=== PATIENT | female | born 1950 | race African-American/Black ===

== ENCOUNTER 2021-03-02 19:01 | Inpatient (IN) | payer OTHER, MEDICAID ==
[~2021-03-02] VITALS: Ht 157.5 cm; Wt 74.7 kg
[2021-03-02] MEDS ORDERED: ACETAMINOPHEN 325 MG TAB PO ONE (19:30)
[2021-03-02 20:07] LABS: Basophils # (auto) 0 10 ^3/uL (0-0.2); Basophils % (auto) 0.1 % (0.0-2.0); Eosinophils # (auto) 0 10 ^3/uL (0-0.8); Hematocrit 44.2 % (36.0-46.0); Hemoglobin 14.8 g/dL (12.2-16.2); Lymphocytes # (auto) 0.3 10 ^3/uL (0.4-5.4); Lymphocytes % (auto) 3.8 % (10.0-50.0); Mean Corpuscular Hemoglobin 30.2 pg (28.0-32.0); Mean Corpuscular Hgb Conc. 33.6 g/dL (32.0-36.0); Monocytes # (auto) 0.5 10 ^3/uL (0-1.3); Neutrophils # (auto) 6.6 10 ^3/uL (1.6-8.6); Neutrophils % (auto) 89.1 % (37.0-80.0); Nucleated Red Blood Cells % 0.2 %; Platelet Count (auto) 257 10^3/uL (140-450); Red Blood Cells 4.91 10^6/uL (4.0-5.20); Red Cell Distribution Width 13.9 % (11.8-14.3); White Blood Cell 7.5 10^3/uL (4.4-10.8)
[2021-03-02 20:25] LABS: Albumin 2.6 g/dL (3.4-5.0); Anion Gap 10 (5-15); Blood Urea Nitrogen 7 mg/dL (7-18); Calcium 7.8 mg/dL (8.5-10.1); Carbon Dioxide 24 mmol/L (21-32); Chloride 94 mmol/L (98-107); Glucose 100 mg/dL (74-106); Potassium 3.9 mmol/L (3.5-5.1); Sodium 128 mmol/L (136-145)
[2021-03-02 20:30] LABS: Alanine Aminotransferase 21 U/L (13-56); Alkaline Phosphatase 74 U/L (45-117); Aspartate Aminotransferase 39 U/L (15-37); BUN/Creatinine Ratio 8.5; Bilirubin, Total 0.5 mg/dL (0.2-1.0); GFR African American 88 mL/min; GFR Non-African American 73 mL/min; Total Protein 7.1 g/dL (6.4-8.2)
[2021-03-02] MEDS ORDERED: SODIUM CHLORIDE 0.9% 500 ML IV ONE (22:30)
[2021-03-03] VITALS (9 sets, daily range): BP systolic 89–119; BP diastolic 57–93
[2021-03-03] MEDS ORDERED: SODIUM CHLORIDE 0.9% 500 ML IV ONE (00:30)
[2021-03-03 01:25] LABS: Urine Bacteria NONE SEEN /hpf (None Seen); Urine Blood Negative /uL (Negative); Urine Specific Gravity 1.009 (1.001-1.035); Urine WBC 2 /hpf (0 - 5)
[2021-03-03] MEDS ORDERED: TEMAZEPAM 15 MG CAP PO PRN (02:30)
[2021-03-03] MEDS ORDERED: MORPHINE SULF INJ 2 MG/ML SYRINGE 1ML IV PRN (02:30)
[2021-03-03] MEDS ORDERED: REMDESIVIR PER PHARMACY 0 ML IV SCH (02:30)
[2021-03-03] MEDS ORDERED: SODIUM CHLORIDE 0.9% 1,000 ML IV SCH (02:30)
[2021-03-03] MEDS ORDERED: ACETAMINOPHEN 500 MG TAB PO PRN (02:30)
[2021-03-03] MEDS ORDERED: NITROGLYCERIN 0.4 MG SL TAB SL PRN (02:30)
[2021-03-03] MEDS ORDERED: ACETAMINOPHEN 325 MG TAB PO PRN (02:30)
[2021-03-03 03:30] LABS: Magnesium 2.2 mg/dL (1.6-2.6)
[2021-03-03] MEDS: AZITHROMYCIN 500MG/ 250ML 250 ML IV SCH (03:31)
[2021-03-03] MEDS: DexAMETHasone SOD PHOS 10MG/1ML VIAL INJ IV SCH (03:31)
[2021-03-03] MEDS ORDERED: PNEUMOCOCCAL VACC POLYS 25 MCG/0.5 ML VIAL IM SCH (05:30)
[2021-03-03] MEDS ORDERED: ALBUAER3 IN (05:36)
[2021-03-03] MEDS: CHOLECALCIFEROL (VITD3) 2,000 UNIT CAP/TAB PO SCH (09:55)
[2021-03-03] MEDS: FAMOTIDINE 20 MG TAB PO SCH ×2 (09:55→21:37)
[2021-03-03] MEDS: ASCORBIC ACID 1,000 MG TAB PO SCH (09:55)
[2021-03-03] MEDS: ENOXAPARIN SOD 40 MG/0.4 ML SYRINGE SC SCH ×2 (09:56→21:38)
[2021-03-03] MEDS ORDERED: FAMOTIDINE (10MG/ML) 2ML VL IV ONE (11:45)
[2021-03-03] MEDS ORDERED: BUDESONIDE (INHALATION) 0.5 MG/2 ML NEB NEB ONE (11:45)
[2021-03-03] MEDS ORDERED: REMDESIVIR 200 MG in NS 210ml LOADING DOSE ADULT IV ONE (15:00)
[2021-03-03] MEDS: ALBUTEROL SULF HFA 90MCG INH 200DOSE IN PRN (20:42)
[2021-03-03] MEDS: BUDESONIDE (INHALATION) 0.5 MG/2 ML NEB NEB SCH (20:42)
[2021-03-03] MEDS: HYDROcodone-ACET 5/325MG TAB PO PRN (21:56)
[2021-03-04 05:00] VITALS: BP 87/49
[2021-03-04 05:42] VITALS: BP 100/62
[2021-03-04 07:48] LABS: Basophils # (auto) 0 10 ^3/uL (0-0.2); Basophils % (auto) 0.2 % (0.0-2.0); Eosinophils # (auto) 0 10 ^3/uL (0-0.8); Hemoglobin 13.4 g/dL (12.2-16.2); Lymphocytes # (auto) 0.3 10 ^3/uL (0.4-5.4); Lymphocytes % (auto) 3.7 % (10.0-50.0); Mean Corpuscular Hemoglobin 30.4 pg (28.0-32.0); Mean Corpuscular Hgb Conc. 33.5 g/dL (32.0-36.0); Mean Corpuscular Volume 90.9 fL (80.0-100.0); Monocytes # (auto) 0.5 10 ^3/uL (0-1.3); Monocytes % (auto) 5.7 % (0.0-12.0); Neutrophils # (auto) 7.3 10 ^3/uL (1.6-8.6); Neutrophils % (auto) 90.4 % (37.0-80.0); Nucleated Red Blood Cells % 0.1 %; Platelet Count (auto) 317 10^3/uL (140-450); Red Cell Distribution Width 14.2 % (11.8-14.3)
[2021-03-04 08:09] LABS: Potassium 4.2 mmol/L (3.5-5.1)
[2021-03-04 08:17] LABS: Albumin 2.2 g/dL (3.4-5.0); BUN/Creatinine Ratio 18.9; Bilirubin, Total 0.3 mg/dL (0.2-1.0); Calcium 7.8 mg/dL (8.5-10.1); Total Protein 6.1 g/dL (6.4-8.2)
[2021-03-04 08:41] VITALS: BP 94/65
[2021-03-04] MEDS: FAMOTIDINE (10MG/ML) 2ML VL IV SCH (10:20)
[2021-03-04] MEDS: DexAMETHasone SOD PHOS 10MG/1ML VIAL INJ IV SCH (10:20)
[2021-03-04] MEDS: ASCORBIC ACID 1,000 MG TAB PO SCH (10:21)
[2021-03-04] MEDS: AZITHROMYCIN 500MG/ 250ML 250 ML IV SCH (10:21)
[2021-03-04] MEDS: CHOLECALCIFEROL (VITD3) 2,000 UNIT CAP/TAB PO SCH (10:22)
[2021-03-04] MEDS: ENOXAPARIN SOD 40 MG/0.4 ML SYRINGE SC SCH ×2 (10:22→21:58)
[2021-03-04] MEDS: BUDESONIDE (INHALATION) 0.5 MG/2 ML NEB NEB SCH ×2 (10:24→19:15)
[2021-03-04 12:31] VITALS: BP 95/64
[2021-03-04] MEDS: methylPREDNISolone SOD SUCC 40 MG/ML VL IV SCH ×2 (13:50→21:57)
[2021-03-04] MEDS: REMDESIVIR 100mg 100 MG in SODIUM CHL 0.9% 230 ML IV SCH (15:29)
[2021-03-04 16:51] VITALS: BP 94/62
[2021-03-04] MEDS: Ensure HIGH Protein Chocolate 8oz Bottle PO SCH (17:34)
[2021-03-04] MEDS: ALBUTEROL SULF HFA 90MCG INH 200DOSE IN PRN (19:26)
[2021-03-04 22:00] VITALS: BP 125/75
[2021-03-05 05:14] VITALS: BP 105/60
[2021-03-05] MEDS: ALBUTEROL SULF HFA 90MCG INH 200DOSE IN PRN (08:00)
[2021-03-05] MEDS: BUDESONIDE (INHALATION) 0.5 MG/2 ML NEB NEB SCH ×2 (08:00→20:40)
[2021-03-05] MEDS: FAMOTIDINE (10MG/ML) 2ML VL IV SCH (08:26)
[2021-03-05] MEDS: ENOXAPARIN SOD 40 MG/0.4 ML SYRINGE SC SCH ×2 (08:26→22:31)
[2021-03-05] MEDS: AZITHROMYCIN 500MG/ 250ML 250 ML IV SCH (08:26)
[2021-03-05] MEDS: CHOLECALCIFEROL (VITD3) 2,000 UNIT CAP/TAB PO SCH (08:26)
[2021-03-05] MEDS: ASCORBIC ACID 1,000 MG TAB PO SCH (08:26)
[2021-03-05] MEDS: Ensure HIGH Protein Chocolate 8oz Bottle PO SCH ×2 (08:26→17:44)
[2021-03-05 09:00] VITALS: BP 102/56
[2021-03-05] MEDS ORDERED: FUROSEMIDE 20 MG TAB PO ONE (10:45)
[2021-03-05] MEDS ORDERED: POTASSIUM CHL 20 Meq TABLET PO ONE (10:45)
[2021-03-05 13:00] VITALS: BP 103/66
[2021-03-05] MEDS: REMDESIVIR 100mg 100 MG in SODIUM CHL 0.9% 230 ML IV SCH (14:34)
[2021-03-05 17:00] VITALS: BP 105/68
[2021-03-05 20:00] VITALS: BP 101/68
[2021-03-05 22:00] VITALS: BP 101/68
[2021-03-05] MEDS: methylPREDNISolone SOD SUCC 40 MG/ML VL IV SCH (22:30)
[2021-03-05] MEDS: FAMOTIDINE 20 MG TAB PO SCH (22:30)
[2021-03-06] VITALS (7 sets, daily range): BP systolic 98–108; BP diastolic 53–69
[2021-03-06] MEDS: BUDESONIDE (INHALATION) 0.5 MG/2 ML NEB NEB SCH ×2 (07:10→21:09)
[2021-03-06 07:13] LABS: Calcium 7.9 mg/dL (8.5-10.1); Potassium 4.6 mmol/L (3.5-5.1)
[2021-03-06 07:15] LABS: BUN/Creatinine Ratio 36.8
[2021-03-06 07:18] LABS: Basophils # (auto) 0 10 ^3/uL (0-0.2); Eosinophils # (auto) 0 10 ^3/uL (0-0.8); Hematocrit 42.5 % (36.0-46.0); Lymphocytes # (auto) 0.2 10 ^3/uL (0.4-5.4); Lymphocytes % (auto) 2.6 % (10.0-50.0); Mean Corpuscular Hemoglobin 29.9 pg (28.0-32.0); Mean Corpuscular Volume 90.6 fL (80.0-100.0); Monocytes # (auto) 0.3 10 ^3/uL (0-1.3); Monocytes % (auto) 3.6 % (0.0-12.0); Neutrophils # (auto) 8.3 10 ^3/uL (1.6-8.6); Neutrophils % (auto) 93.8 % (37.0-80.0); Nucleated Red Blood Cells % 0.1 %; Platelet Count (auto) 407 10^3/uL (140-450); Red Blood Cells 4.69 10^6/uL (4.0-5.20); Red Cell Distribution Width 14.8 % (11.8-14.3); White Blood Cell 8.8 10^3/uL (4.4-10.8)
[2021-03-06] MEDS: Ensure HIGH Protein Chocolate 8oz Bottle PO SCH ×2 (07:47→17:41)
[2021-03-06] MEDS: ALBUTEROL SULF HFA 90MCG INH 200DOSE IN PRN ×2 (09:10→21:07)
[2021-03-06] MEDS: methylPREDNISolone SOD SUCC 40 MG/ML VL IV SCH ×2 (09:42→21:23)
[2021-03-06] MEDS: AZITHROMYCIN 500MG/ 250ML 250 ML IV SCH (09:42)
[2021-03-06] MEDS: ASCORBIC ACID 1,000 MG TAB PO SCH (09:43)
[2021-03-06] MEDS: ENOXAPARIN SOD 40 MG/0.4 ML SYRINGE SC SCH ×2 (09:43→21:23)
[2021-03-06] MEDS: CHOLECALCIFEROL (VITD3) 2,000 UNIT CAP/TAB PO SCH (09:43)
[2021-03-06] MEDS: FAMOTIDINE 20 MG TAB PO SCH ×2 (09:43→21:22)
[2021-03-06] MEDS ORDERED: POTASSIUM CHL 20 Meq TABLET PO SCH (10:00)
[2021-03-06] MEDS ORDERED: FUROSEMIDE 20 MG TAB PO SCH (10:00)
[2021-03-06] MEDS: REMDESIVIR 100mg 100 MG in SODIUM CHL 0.9% 230 ML IV SCH (14:55)
[2021-03-07] VITALS (7 sets, daily range): BP systolic 96–114; BP diastolic 58–76
[2021-03-07] MEDS: ALBUTEROL SULF HFA 90MCG INH 200DOSE IN PRN (06:21)
[2021-03-07] MEDS: BUDESONIDE (INHALATION) 0.5 MG/2 ML NEB NEB SCH (06:21)
[2021-03-07 07:14] LABS: Basophils # (auto) 0 10 ^3/uL (0-0.2); Basophils % (auto) 0.1 % (0.0-2.0); Eosinophils # (auto) 0 10 ^3/uL (0-0.8); Hematocrit 44.8 % (36.0-46.0); Hemoglobin 14.9 g/dL (12.2-16.2); Lymphocytes # (auto) 0.3 10 ^3/uL (0.4-5.4); Lymphocytes % (auto) 3.7 % (10.0-50.0); Mean Corpuscular Hemoglobin 30.3 pg (28.0-32.0); Mean Corpuscular Hgb Conc. 33.2 g/dL (32.0-36.0); Mean Corpuscular Volume 91.1 fL (80.0-100.0); Monocytes # (auto) 0.4 10 ^3/uL (0-1.3); Monocytes % (auto) 4.5 % (0.0-12.0); Neutrophils # (auto) 7.6 10 ^3/uL (1.6-8.6); Neutrophils % (auto) 91.7 % (37.0-80.0); Nucleated Red Blood Cells % 0.1 %; Platelet Count (auto) 445 10^3/uL (140-450); Red Blood Cells 4.91 10^6/uL (4.0-5.20); Red Cell Distribution Width 14.6 % (11.8-14.3); White Blood Cell 8.2 10^3/uL (4.4-10.8)
[2021-03-07 07:22] LABS: Albumin 2.4 g/dL (3.4-5.0); Calcium 8.4 mg/dL (8.5-10.1); Potassium 4.8 mmol/L (3.5-5.1)
[2021-03-07 07:28] LABS: BUN/Creatinine Ratio 31.5; Bilirubin, Total 0.4 mg/dL (0.2-1.0); Total Protein 6.4 g/dL (6.4-8.2)
[2021-03-07] MEDS: Ensure HIGH Protein Chocolate 8oz Bottle PO SCH ×2 (08:00→18:00)
[2021-03-07] MEDS: FAMOTIDINE 20 MG TAB PO SCH ×2 (10:46→21:59)
[2021-03-07] MEDS: ASCORBIC ACID 1,000 MG TAB PO SCH (10:46)
[2021-03-07] MEDS: AZITHROMYCIN 500MG/ 250ML 250 ML IV SCH (10:46)
[2021-03-07] MEDS: CHOLECALCIFEROL (VITD3) 2,000 UNIT CAP/TAB PO SCH (10:46)
[2021-03-07] MEDS: methylPREDNISolone SOD SUCC 40 MG/ML VL IV SCH ×2 (10:47→21:59)
[2021-03-07] MEDS: ENOXAPARIN SOD 40 MG/0.4 ML SYRINGE SC SCH ×2 (11:20→21:58)
[2021-03-07] MEDS: REMDESIVIR 100mg 100 MG in SODIUM CHL 0.9% 230 ML IV SCH (15:35)
[2021-03-07] MEDS: BUDESONIDE (INHALATION) 180 MCG IH IN SCH (21:08)
[2021-03-08] VITALS (7 sets, daily range): BP systolic 90–119; BP diastolic 53–73
[2021-03-08] MEDS: HYDROcodone-ACET 5/325MG TAB PO PRN (00:15)
[2021-03-08] MEDS: Ensure HIGH Protein Chocolate 8oz Bottle PO SCH ×2 (08:00→18:00)
[2021-03-08] MEDS: BUDESONIDE (INHALATION) 180 MCG IH IN SCH ×2 (10:00→19:33)
[2021-03-08] MEDS: ENOXAPARIN SOD 40 MG/0.4 ML SYRINGE SC SCH ×2 (10:51→22:01)
[2021-03-08] MEDS: methylPREDNISolone SOD SUCC 40 MG/ML VL IV SCH ×2 (10:51→22:01)
[2021-03-08] MEDS: ASCORBIC ACID 1,000 MG TAB PO SCH (10:51)
[2021-03-08] MEDS: CHOLECALCIFEROL (VITD3) 2,000 UNIT CAP/TAB PO SCH (10:51)
[2021-03-08] MEDS: FAMOTIDINE 20 MG TAB PO SCH ×2 (10:52→22:01)
[2021-03-08] MEDS ORDERED: SODIUM CHLORIDE 0.9% 500 ML IV ONE ×2 (12:05→12:30)
[2021-03-08] MEDS ORDERED: FUROSEMIDE 20 MG/2 ML VIAL IV ONE (12:15)
[2021-03-08] MEDS ORDERED: ALBUMIN 25% 50 ML IV ONE (13:15)
[2021-03-08 14:09] LABS: BUN/Creatinine Ratio 31.5; Calcium 7.9 mg/dL (8.5-10.1)
[2021-03-08] MEDS: ALBUTEROL SULF HFA 90MCG INH 200DOSE IN PRN (19:33)
[2021-03-09] VITALS (7 sets, daily range): BP systolic 90–125; BP diastolic 47–70
[2021-03-09] MEDS: ALBUTEROL SULF HFA 90MCG INH 200DOSE IN PRN ×2 (07:57→22:43)
[2021-03-09] MEDS: BUDESONIDE (INHALATION) 180 MCG IH IN SCH ×2 (07:57→22:43)
[2021-03-09] MEDS: Ensure HIGH Protein Chocolate 8oz Bottle PO SCH ×2 (09:38→18:00)
[2021-03-09] MEDS: CHOLECALCIFEROL (VITD3) 2,000 UNIT CAP/TAB PO SCH (09:39)
[2021-03-09] MEDS: FAMOTIDINE 20 MG TAB PO SCH ×2 (09:39→21:25)
[2021-03-09] MEDS: ASCORBIC ACID 1,000 MG TAB PO SCH (09:39)
[2021-03-09] MEDS: methylPREDNISolone SOD SUCC 40 MG/ML VL IV SCH (09:39)
[2021-03-09] MEDS: ONDANSETRON HCL 4 MG/2 ML VIAL IV PRN ×2 (09:40→15:36)
[2021-03-09] MEDS: ENOXAPARIN SOD 40 MG/0.4 ML SYRINGE SC SCH ×2 (09:40→21:26)
[2021-03-09] MEDS: HYDROcodone-ACET 5/325MG TAB PO PRN (09:41)
[2021-03-09] MEDS ORDERED: FUROSEMIDE 20 MG/2 ML VIAL IV SCH (10:00)
[2021-03-10] MEDS: HYDROcodone-ACET 5/325MG TAB PO PRN ×2 (00:11→09:32)
[2021-03-10 05:33] VITALS: BP 91/52
[2021-03-10] MEDS: ALBUTEROL SULF HFA 90MCG INH 200DOSE IN PRN (06:58)
[2021-03-10] MEDS: BUDESONIDE (INHALATION) 180 MCG IH IN SCH (06:59)
[2021-03-10 09:00] VITALS: BP 108/67
[2021-03-10] MEDS: Ensure HIGH Protein Chocolate 8oz Bottle PO SCH (09:30)
[2021-03-10] MEDS: FAMOTIDINE 20 MG TAB PO SCH (09:30)
[2021-03-10] MEDS: CHOLECALCIFEROL (VITD3) 2,000 UNIT CAP/TAB PO SCH (09:31)
[2021-03-10] MEDS: ASCORBIC ACID 1,000 MG TAB PO SCH (09:31)
[2021-03-10] MEDS: ENOXAPARIN SOD 40 MG/0.4 ML SYRINGE SC SCH (09:31)
[2021-03-10] MEDS ORDERED: predniSONE 20 MG TAB PO SCH (10:00)
[2021-03-10 13:00] VITALS: BP 99/64
[2021-03-10 17:00] VITALS: BP 112/59
== END 2021-03-10 17:57 | DRG 177 ==
LOC: ER 19:04 → TELE 03-03 02:27 → TELE-EAST 03-03 04:05
PROVIDERS: ADMIT Nurse Practitioner; ATTEND Internal Medicine
PROC: XW033E5 Introduction of Remdesivir Anti-infective into Peripheral Vein, Percutaneous Approach, New Technology Group 5 (ICD-10-PCS; principal; 2021-03-04)
DX: U07.1 COVID-19 (principal); J12.82 Pneumonia due to coronavirus disease 2019; J96.00 Acute respiratory failure, unspecified whether with hypoxia or hypercapnia; E44.0 Moderate protein-calorie malnutrition; E87.1 Hypo-osmolality and hyponatremia; J44.0 Chronic obstructive pulmonary disease with (acute) lower respiratory infection; D89.839 Cytokine release syndrome, grade unspecified; I10 Essential (primary) hypertension; Z72.0 Tobacco use; M54.5 Low back pain; Z68.28 Body mass index [BMI] 28.0-28.9, adult
CPT/HCPCS: 36415; 71045; 80048; 80053; 81001; 82728; 83605; 83615; 83735; 83880; 84443; 84484; 85025; 85379; 86141; 87040; 87086; 87426; 93005; 94640; 96360; 96361; 97110; 97116; 97163; 97530; G0378; J1100; J2405; J3490